=== PATIENT | male | born 1995 | race Caucasian/White ===

== ENCOUNTER 2023-01-18 00:58 | Emergency (ER) | payer OTHER ==
[~2023-01-18] VITALS: Ht 185.4 cm; Wt 72.6 kg
[2023-01-18 02:30] VITALS: BP 141/91
[2023-01-18] MEDS ORDERED: SULTRIDS PO (02:35)
== END 2023-01-18 02:35 | disposition home or self-care (01) ==
LOC: ER 00:58
DX: L03.211 Cellulitis of face (principal); B95.8 Unspecified staphylococcus as the cause of diseases classified elsewhere; F15.90 Other stimulant use, unspecified, uncomplicated; Z88.0 Allergy status to penicillin; F17.210 Nicotine dependence, cigarettes, uncomplicated
CPT/HCPCS: A9270

== ENCOUNTER 2023-02-06 03:14 | Emergency (ER) | payer OTHER ==
[~2023-02-06] VITALS: Ht 185.4 cm; Wt 72.6 kg
[~2023-02-06 03:14] MED LIST: SULTRIDS PO
[2023-02-06 03:25] VITALS: BP 140/94
[2023-02-06] MEDS ORDERED: CEPH500 PO (03:41)
[2023-02-06] MEDS ORDERED: PROBIOTIC1 EA13 PO (03:41)
== END 2023-02-06 03:47 | disposition home or self-care (01) ==
LOC: ER 03:14
DX: L03.211 Cellulitis of face (principal); R00.2 Palpitations; F17.210 Nicotine dependence, cigarettes, uncomplicated; Z88.0 Allergy status to penicillin; Z88.1 Allergy status to other antibiotic agents
CPT/HCPCS: 93005; 93010; 99285-25

== ENCOUNTER 2023-02-15 16:07 | Emergency (ER) | payer OTHER ==
[~2023-02-15] VITALS: Ht 172.7 cm; Wt 63.5 kg
[~2023-02-15 16:07] MED LIST changes: +CEPH500 PO; +PROBIOTIC1 EA13 PO
[2023-02-15 16:12] VITALS: BP 117/65
[2023-02-15 17:25] LABS: BASOPHILS ABSOLUTE AUTO 0.04 K/mm3 (0.00-0.23); BASOPHILS PERCENT AUTO 1 % (0-2); EOSINOPHILS ABSOLUTE AUTO 0.09 K/mm3 (0.00-0.68); EOSINOPHILS PERCENT AUTO 1 % (0-6); Hematocrit 40.6 % (37.0-53.0); Hemoglobin 14.1 g/dL (13.5-17.5); IMMATURE GRAN ABSOLUTE AUTO 0.02 K/mm3 (0.00-0.10); IMMATURE GRAN PERCENT AUTO 0 % (0-1); LYMPHOCYTES ABSOLUTE AUTO 1.58 K/mm3 (0.84-5.20); LYMPHOCYTES PERCENT AUTO 19 % (21-46); MONOCYTES ABSOLUTE AUTO 0.62 K/mm3 (0.16-1.47); MONOCYTES PERCENT AUTO 7 % (4-13); Mean Corpuscular HGB 28.5 pg (26.0-34.0); Mean Corpuscular HGB Conc 34.7 g/dL (31.5-36.5); Mean Corpuscular Volume 82 fL (80-100); Mean Platelet Volume 9.5 fL (9.1-12.4); NEUTROPHILS ABSOLUTE AUTO 6.15 K/mm3 (1.96-9.15); NEUTROPHILS PERCENT AUTO 72 % (41-73); Platelet Count 335 K/mm3 (150-400); RDW Coefficient Variation 12.8 % (11.7-14.2); RDW Standard Deviation 38.1 fL (35.1-46.3); Red Blood Cell Count 4.95 M/mm3 (4.30-5.90)
[2023-02-15 17:48] LABS: Bun/Creatinine Ratio 21.1 (12.0-20.0); Calcium, Blood 9.2 mg/dL (8.5-10.1); Creatinine, Blood 0.9 mg/dL (0.60-1.20); Potassium, Blood 4.3 mmol/L (3.5-5.5)
[2023-02-15] MEDS ORDERED: CEPH500 PO (18:13)
== END 2023-02-15 18:15 ==
LOC: ER 16:07
PROVIDERS: Emergency Medicine
DX: F15.90 Other stimulant use, unspecified, uncomplicated (principal); F17.210 Nicotine dependence, cigarettes, uncomplicated; Z88.0 Allergy status to penicillin; Z79.899 Other long term (current) drug therapy
CPT/HCPCS: 71045; 80048; 84484; 85025; 93005; 93010; 99285-25; A9270

== ENCOUNTER 2023-03-01 15:32 | Emergency (ER) | payer OTHER ==
[~2023-03-01] VITALS: Ht 185.4 cm; Wt 72.6 kg
[2023-03-01 15:41] VITALS: BP 138/90
== END 2023-03-01 16:01 | disposition home or self-care (01) ==
LOC: ER 15:32
DX: Z02.89 Encounter for other administrative examinations (principal); T43.622A Poisoning by amphetamines, intentional self-harm, initial encounter; T40.412A Poisoning by fentanyl or fentanyl analogs, intentional self-harm, initial encounter; Z88.0 Allergy status to penicillin; X58.XXXA Exposure to other specified factors, initial encounter
CPT/HCPCS: 99283

== ENCOUNTER 2023-08-11 23:50 | Emergency (ER) | payer OTHER ==
[~2023-08-11] VITALS: Ht 180.3 cm; Wt 81.7 kg
[2023-08-12] MEDS ORDERED: Trimethoprim/Sulfamethoxazole DS Tab PO ONE (03:50)
[2023-08-12] MEDS ORDERED: Tetanus and Diphtheria Toxoid 0.5 ML INJ IM ONE (03:50)
[2023-08-12] MEDS ORDERED: NS 1,000 ML IV SCH (03:50)
[2023-08-12] MEDS ORDERED: CefTRIAXone Sodium 1,000 MG in NS 50 ML IV ONE (03:50)
[2023-08-12] MEDS ORDERED: Ketorolac Tromethamine 30mg Vial IV ONE (03:50)
[2023-08-12] MEDS ORDERED: SULTRIDS PO (03:51)
[2023-08-12 04:10] VITALS: BP 136/71
== END 2023-08-12 04:15 | disposition home or self-care (01) ==
LOC: ER 23:50
DX: L03.114 Cellulitis of left upper limb (principal); L02.414 Cutaneous abscess of left upper limb; L03.113 Cellulitis of right upper limb; E86.0 Dehydration; F15.10 Other stimulant abuse, uncomplicated; Z23 Encounter for immunization; Z88.0 Allergy status to penicillin
CPT/HCPCS: 90471; 90714; 96374; 96375; 99283; A9270; J0696; J1885; J7030